=== PATIENT | female | born 1995 | race Two or more races ===

== ENCOUNTER 2017-10-27 02:18 | Emergency (ER) | payer SELFPAY ==
[~2017-10-27] VITALS: Ht 165.1 cm; Wt 74.4 kg
[2017-10-27 03:00] VITALS: BP 122/77
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
[2017-10-27 03:35] LABS: APPEARANCE,URINE CLEAR; BILIRUBIN, URINE NEGATIVE (NEGATIVE); GLUCOSE, URINE (UA) NEGATIVE (NEGATIVE); KETONES,URINE NEGATIVE (NEGATIVE); LEUKOCYTE ESTERASE ,URINE 1+ (NEGATIVE); NITRITE,URINE NEGATIVE (NEGATIVE); PH,URINE 5 (4.5-8.0); PROTEIN,URINE 1+ (NEGATIVE); UROBILINOGEN,URINE 1 MG/DL (0.0-1.0)
[2017-10-27 03:46] LABS: COLOR,URINE YELLOW
[2017-10-27 05:00] VITALS: BP 117/75
[2017-10-27] MEDS ORDERED: TRAMADOL HCL50 MG ORAL (05:53)
[2017-10-27] MEDS ORDERED: IBUPROFEN600 MG ORAL (05:53)
[2017-10-27] MEDS ORDERED: ROBAXIN500 MG PO (05:53)
[2017-10-27 06:00] VITALS: BP 122/77
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
== END 2017-10-27 06:00 | disposition home or self-care (01) ==
LOC: EMR 03:05
DX: S09.90XA Unspecified injury of head, initial encounter (principal); M25.552 Pain in left hip; M25.512 Pain in left shoulder; V09.9XXA Pedestrian injured in unspecified transport accident, initial encounter; Y92.410 Unspecified street and highway as the place of occurrence of the external cause; F17.200 Nicotine dependence, unspecified, uncomplicated; R11.2 Nausea with vomiting, unspecified; R51 Headache
CPT/HCPCS: 70450; 71045; 72125; 72170; 81003; 81025; 99284